=== PATIENT | male | born 1940 | race Caucasian/White ===

== ENCOUNTER 2016-12-24 06:11 | Day surgery (SDC) | payer MEDICARE, OTHER ==
[~2016-12-24] VITALS: Ht 175.3 cm; Wt 90.5 kg
[~2016-12-24 06:11] MED LIST: ALBU8HFA IH; ASPI-556 PO; BUDE10.2 IH; CELE200 PO; DICL2100G TP; FLUT16H NASAL; LOVA20 PO; MONT10TA21 PO; OMEP20 PO
[2016-12-24] MEDS ORDERED: SODIUM CHLORIDE 0.9% 1,000 ML IV ONE ×2 (06:30→06:33)
[2016-12-24] MEDS ORDERED: MIDAZOLAM HCL 2 MG/2 ML VIAL ONE (07:35)
[2016-12-24] MEDS ORDERED: FentaNYL CITRATE-PF 100 MCG/2 ML VIAL ONE (07:35)
[2016-12-24] MEDS ORDERED: MethylPREDNISolone SOD SUCC 125 MG/2 ML VIAL IVP ONE (08:45)
[2016-12-24] MEDS ORDERED: MethylPREDNISolone SOD SUCC 125 MG/2 ML VIAL ONE (09:29)
[2016-12-24] MEDS ORDERED: BENZOCAINE 20% 50 MCG/SPRAY 57 GM TP ONE (17:41)
[2016-12-24] MEDS ORDERED: LIDOCAINE HCL 4% 50 ML SOLUTION TP ONE (17:41)
[2016-12-24] MEDS ORDERED: LIDOCAINE HCL 2% 30 ML JELLY TP ONE (17:41)
[2016-12-24] MEDS ORDERED: ALBUTEROL SULFATE 2.5 MG/0.5 ML NEB SOLUTION NEB ONE (17:41)
[2016-12-24] MEDS ORDERED: OXYGEN THERAPY IH SCH (20:00)
== END 2016-12-24 10:17 | disposition home or self-care (01) ==
LOC: SURGERY 06:11
PROVIDERS: ATTEND Internal Medicine Critical Care Medicine
DX: J38.4 Edema of larynx (principal); B37.0 Candidal stomatitis; J45.909 Unspecified asthma, uncomplicated; M17.11 Unilateral primary osteoarthritis, right knee; K21.9 Gastro-esophageal reflux disease without esophagitis; D71 Functional disorders of polymorphonuclear neutrophils; Z72.89 Other problems related to lifestyle; Z79.82 Long term (current) use of aspirin; Z98.890 Other specified postprocedural states
CPT/HCPCS: 31623; 31624; 71010; 87015 ×2; 87070; 87101; 87205; 87220; 88108; 88184; 88185; 88312; 93005; J2250; J2930; J3010; J7030